=== PATIENT | male | born 1995 | race Caucasian/White ===

== ENCOUNTER 2016-06-16 07:53 | Emergency (ER) | payer OTHER ==
[~2016-06-16] VITALS: Ht 182.9 cm; Wt 72.9 kg
[2016-06-16 07:53] VITALS: TEMP 36.5; Ht 182.9 cm; Wt 72.9 kg
[2016-06-16] MEDS ORDERED: ONDANSETRON INJ 2 MG/ML 2 ML VIAL IV STA (08:22)
[2016-06-16] MEDS: MoRPHine SULFATE 10 MG/ML CARP/VIAL IV PRN ×2 (08:35→08:45)
[2016-06-16] MEDS ORDERED: AZAT50TA5 PO (08:37)
[2016-06-16] MEDS ORDERED: CHOL1000 PO (08:37)
--- NOTE | 2016-06-16 08:45 | EMERGENCY ROOM VISIT NOTE ---
History Report prepared by Russ: Gilbert Santo Under the Supervision of: Dr. Leandro Bolanos M.D. First contact with patient: 08:24 Chief Complaint: ABDOMINAL PAIN Stated Complaint: PAIN IN LEFT SIDE Nursing Triage Summary: Left sided abd pain, n/v. Started last night. States was drinking a lot last night, never had pancreatitis. Also c/o burning on urination with pain in his testicles per pt. Also admits to having unprotected sex last night. Hx of Crohn's disease. History of Present Illness The patient is a 21 year old male who presents to the Emergency Room with complaints of persistent left-sided abdominal pain since last night. The pain radiates to his back and to the testicles. The pain is rated 10/10 in severity. The patient also complains of burning with urination. The patient denies any chest pain. He has not had any trauma to the abdomen. The patient never had pain like this before. The patient has a family history of kidney stones. The patient admits that he was drinking heavily last night. He also had unprotected sex two nights ago with his longtime girlfriend, which he has been doing for some time now. The patient has a history of Crohn's disease. Source of History: patient Onset: last night Position: abdomen (left sided) Symptom Intensity: 10/10 Timing: other (persistent) Associated Symptoms: + back pain, + urinary symptoms, No chest pain Review of Systems All systems have been listed, reviewed, and are negative other than those previously mentioned. Please see Additional Medical History Sheet. Past Medical & Surgical Medical Problems: (1) Crohns disease Surgical Problems: (1) [place] teeth extracted Family History Kidney stones Social History Smoking Status: Never Smoker Alcohol Use: none Drug Use: none Marital Status: single Housing Status: lives with roommate Occupation Status: [employer] student Current/Historical Medications Scheduled Azathioprine (Imuran), 150 MG PO QAM Cholecalciferol (Vitamin D3), 2 TAB PO DAILY Tamsulosin Hcl (Flomax), 0.4 MG PO DAILY Scheduled PRN Ibuprofen Tab (Motrin), 600 MG PO Q6H PRN for Pain Oxycodone/Acetaminophen 5MG/325MG (Percocet 5MG/325MG), 1-2 TABLETS PO Q4H PRN for Pain Allergies Coded Allergies: Azithromycin (Verified Allergy, Unknown, Hives, 06/16/16) Reported by PT. Physical Exam Vital Signs Date Time Temp Pulse Resp B/P Pulse Ox O2 Delivery O2 Flow Rate FiO2 06/16/16 11:40 81 16 125/49 96 Room Air 06/16/16 10:27 78 16 141/85 98 Room Air 06/16/16 08:47 93 16 136/79 99 Room Air 06/16/16 07:53 36.5 100 20 135/81 100 Room Air Physical Exam GENERAL: Patient appears to be in moderate to severe distress. Patient is writhing in pain. Patient awake, alert, oriented x 3. Patient follows commands. Patient does not appear toxic. Patient is adequately hydrated and well-nourished. SKIN: No erythema, pallor, cyanosis or rash HEENT: Normal head, pupils equal, reactive to light and accommodation. LUNGS: Clear to auscultation. No wheezes, no rales, no rhonchi. HEART: No murmurs. No gallops. No rubs ABDOMEN: No masses, no rebound, no hepatomegaly or splenomegaly. EXTREMITIES: No signs of trauma or infection. NEUROLOGIC: Cranial nerves II-XII within normal limits. No gross motor sensory function deficits. Medical Decision & Procedures ER Provider Diagnostic Interpretation: CT results are interpretations by the radiologist and per my review. CT SCAN OF THE ABDOMEN AND PELVIS WITHOUT CONTRAST CLINICAL HISTORY: left flank pain COMPARISON STUDY: No previous studies for comparison. TECHNIQUE: CT scan of the abdomen and pelvis was performed from the lung bases to the proximal femurs. Images are reviewed in the axial, sagittal, and coronal planes. IV contrast was not administered for this examination. CT DOSE: 589.80 mGy.cm FINDINGS: Lower chest: The heart is normal in size and configuration, without pericardial effusion. The lung bases and pleural spaces are clear. Liver: The unenhanced liver is normal in size, contour, and attenuation. There is no intrahepatic biliary ductal dilatation. Gallbladder: Unremarkable. Spleen: The spleen is mildly enlarged measuring 14 cm. Pancreas: Unremarkable. Adrenal glands: Unremarkable. Kidneys: No renal calculi are visualized. There is mild left perinephric edema. There is mild left hydronephrosis. There is a 1.5 mm proximal left ureteral calculus at the L3-4 level. Bowel: There are no transition zones indicate bowel obstruction. There are no findings to indicate acute appendicitis. There are no findings to indicate acute diverticulitis. Peritoneum: There is no intraperitoneal free air or abdominal ascites. Vasculature: The abdominal aorta is normal in course and caliber. Adenopathy: None. Pelvic viscera: The bladder, and pelvic viscera are unremarkable. Skeletal structures: No destructive osseous lesions are seen. IMPRESSION: 1.5 mm obstructing proximal left ureteral calculus at the L3-4 level. Electronically signed by: Jacob Earl M.D. 06/16/2016 9:03 AM Dictated Date/Time: 06/16/2016 8:59 AM Laboratory Results 06/16/16 08:47 06/16/16 08:10 Test 06/16/16 08:10 06/16/16 08:30 06/16/16 08:47 Anion Gap 11.0 mmol/L (3-11) Est Creatinine Clear Calc Drug Dose 100.4 ml/min Estimated GFR () 99.6 Estimated GFR (Non- 85.9 BUN/Creatinine Ratio 13.6 (10-20) Calcium Level 8.8 mg/dl (8.5-10.1) Urine Color DK YELLOW Urine Appearance CLEAR (CLEAR) Urine pH 5.5 (4.5-7.5) Urine Specific [place] 1.021 (1.000-1.030) Urine Protein NEG (NEG) Urine Glucose (UA) NEG (NEG) Urine Ketones TRACE (NEG) Urine Occult Blood 3+ (NEG) Urine Nitrite NEG (NEG) Urine Bilirubin NEG (NEG) Urine Urobilinogen NEG (NEG) Urine Leukocyte Esterase NEG (NEG) Urine WBC (Auto) /hpf (0-5) Urine RBC (Auto) /hpf (0-4) Urine Hyaline Casts (Auto) /lpf (0-5) Urine Epithelial Cells (Auto) /lpf (0-5) Urine Bacteria (Auto) (NEG) Urine RBC >30 /hpf (0-4) Urine WBC 1-5 /hpf (0-5) Urine Epithelial Cells 10-20 /lpf (0-5) Urine Crystals (NONE PRSENT) Urine Calcium Oxalate Crystals PRESENT (NONE PRSENT) Urine Bacteria NEG (NEG) Urine Mucus PRESENT (NONE PRSENT) Red Blood Count 3.86 M/uL (4.7-6.1) Mean Corpuscular Volume 92.5 fL (80-100) Mean Corpuscular Hemoglobin 35.0 pg (25-34) Mean Corpuscular Hemoglobin Concent 37.8 g/dl (32-36) RDW Standard Deviation 44.9 fL (36.4-46.3) RDW Coefficient of Variation 13.4 % (11.5-14.5) Mean Platelet Volume 9.6 fL (7.4-10.4) Ethyl Alcohol mg/dL 53.0 mg/dl (0-3) Laboratory results as stated above per my review. Medications Administered Medications (Trade) Dose Ordered Sig/Heidy Route Start Time Stop Time Status Last Admin Dose Admin Ondansetron HCl (Zofran Inj) 4 mg NOW STAT IV 06/16/16 08:22 06/16/16 08:24 DC 06/16/16 08:45 4 MG Morphine Sulfate (MoRPHine SULFATE INJ) 6 mg Q10M PRN IV 06/16/16 08:30 06/16/16 12:10 DC 06/16/16 08:35 6 MG Ketorolac Tromethamine (Toradol Inj) 30 mg NOW STAT IV 06/16/16 10:15 06/16/16 10:17 DC 06/16/16 10:30 30 MG Tamsulosin HCl (Flomax Cap) 0.4 mg NOW ONCE PO 06/16/16 10:45 06/16/16 10:46 DC 06/16/16 10:54 0.4 MG ED Course 0822: Zofran 4 mg IV. 0825: Past medical records reviewed. The patient was evaluated in room B2. A complete history and physical examination was performed. 0830: Morphine Sulfate 6 mg IV. 1013: Checked on the patient. He appears to be in less pain. 1015: Toradol 30 mg IV. 1045: Flomax 0.4 mg PO. 1120: Found out that the patient has a history of Crohn's Disease. I will cancel his prescription for Motrin. He will be prepared for discharge. 1130: Upon reevaluation, the patient appeared to have improvement of his symptoms. I discussed today's findings with him. He verbalized agreement of the treatment plan. He was discharged home. Medical Decision I considered multiple diagnoses including kidney stone, musculoskeletal pain, alcohol overdose, UTI, pyelonephritis. Multiple labs, urinalysis and imaging were obtained. The patient was given medication for his pain which did help considerably. The patient is a 1.5 mm left ureteral calculus. The patient was felt stable to return home. Initially he was ordered ibuprofen as an outpatient but that was canceled when he told me that he has Crohn's disease. He is to take Tylenol for mild pain and Percocet for more severe pain. He was counseled about the use of opiates. The patient was also placed on Flomax. Impression Primary Impression: Renal colic on left side Scribe Attestation The scribe's documentation has been prepared under my direction and personally reviewed by me in its entirety. I confirm that the note above accurately reflects all work, treatment, procedures, and medical decision making performed by me. Departure Information Dispostion Home / Self-Care Prescriptions Ibuprofen Tab (MOTRIN) 600 Mg Tab 600 MG PO Q6H Y for Pain, #30 TAB Prov: Leandro Bolanos M.D. 06/16/16 Oxycodone/Acetaminophen 5MG/325MG (PERCOCET 5MG/325MG) Tab 1-2 TABLETS PO Q4H Y for Pain, #20 TAB Prov: Leandro Bolanos M.D. 06/16/16 Tamsulosin Hcl (FLOMAX) 0.4 Mg Cap 0.4 MG PO DAILY, #10 CAP Prov: Leandro Bolanos M.D. 06/16/16 Referrals No Doctor, Assigned (PCP) Forms HOME CARE DOCUMENTATION FORM, IMPORTANT VISIT INFORMATION Patient Instructions ED Stone Renal W Colic, My [facility] Additional Instructions 650 mg of Tylenol every 4 hours as needed for [id number] pain. 1-2 Percocet every 4 hours as needed for more severe pain. Do not drive or operate machinery while taking Percocet. Do not take Percocet and Tylenol together. 1 Flomax daily. Strain your urine. Drink extra fluids. Return here if the above measures are not controlling your pain.
[2016-06-16 08:48] LABS: BUN/CREATININE RATIO 13.6 (10-20); CALCIUM 8.8 mg/dl (8.5-10.1); CREATININE 1.2 mg/dl (0.60-1.40); POTASSIUM 3.6 mmol/L (3.5-5.1)
[2016-06-16 08:51] LABS: URINE APPEARANCE CLEAR (CLEAR); URINE BILIRUBIN NEG (NEG); URINE COLOR DK YELLOW; URINE NITRITE NEG (NEG); URINE PH 5.5 (4.5-7.5); URINE SPECIFIC GRAVITY 1.021 (1.000-1.030); UROBILINOGEN NEG (NEG); ZZUR CULT IF INDIC CLEAN CATCH NO
[2016-06-16 08:59] LABS: MANUAL MICROSCOPIC REQUIRED? YES; REVIEW REQ? NO
[2016-06-16 08:59] LABS: HEMATOCRIT 35.7 % (42-52); MEAN CELL VOLUME 92.5 fL (80-100); MEAN CORPUSCULAR HGB CONC 37.8 g/dl (32-36); MEAN PLATELET VOLUME 9.6 fL (7.4-10.4); PLATELET COUNT 216 K/uL (130-400); RED BLOOD COUNT 3.86 M/uL (4.7-6.1); WHITE BLOOD COUNT 3.54 K/uL (4.8-10.8)
[2016-06-16 09:04] LABS: URINE MUCUS PRESENT (NONE PRSENT); URINE RBC >30 /hpf (0-4)
--- NOTE | 2016-06-16 09:04 | DIAGNOSTIC IMAGING REPORT ---
CT SCAN OF THE ABDOMEN AND PELVIS WITHOUT CONTRAST CLINICAL HISTORY: left flank pain COMPARISON STUDY: No previous studies for comparison. TECHNIQUE: CT scan of the abdomen and pelvis was performed from the lung bases to the proximal femurs. Images are reviewed in the axial, sagittal, and coronal planes. IV contrast was not administered for this examination. CT DOSE: 589.80 mGy.cm FINDINGS: Lower chest: The heart is normal in size and configuration, without pericardial effusion. The lung bases and pleural spaces are clear. Liver: The unenhanced liver is normal in size, contour, and attenuation. There is no intrahepatic biliary ductal dilatation. Gallbladder: Unremarkable. Spleen: The spleen is mildly enlarged measuring 14 cm. Pancreas: Unremarkable. Adrenal glands: Unremarkable. Kidneys: No renal calculi are visualized. There is mild left perinephric edema. There is mild left hydronephrosis. There is a 1.5 mm proximal left ureteral calculus at the L3-4 level. Bowel: There are no transition zones indicate bowel obstruction. There are no findings to indicate acute appendicitis. There are no findings to indicate acute diverticulitis. Peritoneum: There is no intraperitoneal free air or abdominal ascites. Vasculature: The abdominal aorta is normal in course and caliber. Adenopathy: None. Pelvic viscera: The bladder, and pelvic viscera are unremarkable. Skeletal structures: No destructive osseous lesions are seen. IMPRESSION: 1.5 mm obstructing proximal left ureteral calculus at the L3-4 level. Electronically signed by: Jacob Earl M.D. 06/16/2016 9:03 AM Dictated Date/Time: 06/16/2016 8:59 AM
[2016-06-16 09:05] LABS: URINE BACTERIA NEG (NEG)
[2016-06-16] MEDS ORDERED: KETOROLAC TROMETHAMINE 30 MG/ML VIAL IV STA (10:15)
[2016-06-16] MEDS ORDERED: IBUP-1427 PO (10:45)
[2016-06-16] MEDS ORDERED: TAMSULOSIN HCL 0.4 MG CAP PO ONE (10:45)
[2016-06-16] MEDS ORDERED: TAMS0.4C38 PO (10:45)
[2016-06-16] MEDS ORDERED: OXYC-57 PO (10:45)
[2016-06-16 11:40] VITALS: BP 125/49; PULSE 81; O2SAT 96
== END 2016-06-16 11:55 | disposition home or self-care (01) ==
LOC: C.EDB 07:54
DX: N23 Unspecified renal colic (principal); N13.1 Hydronephrosis with ureteral stricture, not elsewhere classified; K50.919 Crohn's disease, unspecified, with unspecified complications